=== PATIENT | female | born 1985 | race Caucasian/White ===

== ENCOUNTER → 2016-06-23 | Outpatient (CLI) | payer BC ==
[~2016-06-23] MED LIST: OXYC5TAB PO; PRENTAB26 PO
== END | disposition home or self-care (01) ==
LOC: C.PAPS 08:18
PROVIDERS: ATTEND Physician Assistant
DX: Z01.419 Encounter for gynecological examination (general) (routine) without abnormal findings (principal)

== ENCOUNTER → 2017-03-11 | Outpatient (CLI) | payer BC ==
--- NOTE | 2017-03-11 14:26 | MAMMOGRAPHY REPORT ---
ULTRASOUND OF RIGHT BREAST: 03/11/2017 CLINICAL HISTORY: The patient reported palpable lump in her right breast for approximately one month. She denies any associated pain or other complaints. COMPARISON: No prior exams were available for comparison. TECHNIQUE: Real-time targeted ultrasound of the right breast was performed. FINDINGS: Real-time, high-resolution targeted ultrasound was performed of the area of the palpable l ump pointed out by the patient, in the right breast at approximately 5 to 5:30, 8 cm from the nipple along the inframammary ridge. Sonographically normal tissue is seen in this region, without evidence of a mass or other suspicious sonographic abnormality. During the exam, the patient reports that he r provider also felt another possible lump in the lower outer quadrant during her breast exam, howeve r, the patient could not pinpoint the exact location of the lump. Ultrasound of the right lower oute r quadrant demonstrates no suspicious masses or other suspicious sonographic abnormalities. IMPRESSION: ACR BI-RADS CATEGORY 1: NEGATIVE No suspicious sonographic abnormality at the site of the palpable right breast lumps. There is no so nographic evidence of malignancy. Recommend clinical follow-up; any decision to biopsy should be bas ed on clinical grounds. The patient was verbally notified of the results. Malika Robert M.D. /:03/11/2017 09:04:38 Ensemble Member: Malika Robert MD, [facility] letter sent: Normal 1/2 BI-RADS Code: ACR BI-RADS Category 1: Negative
== END | disposition home or self-care (01) ==
LOC: C.MAMM 08:47
PROVIDERS: ATTEND Physician Assistant
DX: R92.8 Other abnormal and inconclusive findings on diagnostic imaging of breast (principal); N63.10 Unspecified lump in the right breast, unspecified quadrant

== ENCOUNTER → 2017-06-21 | Outpatient (CLI) | payer BC ==
[2017-06-21 17:34] LABS: HEMATOCRIT 38.8 % (37-47); HEMOGLOBIN 13.1 g/dL (12.0-16.0); MEAN CELL VOLUME 88.6 fL (80-100); MEAN CORPUSCULAR HEMOGLOBIN 29.9 pg (25-34); MEAN CORPUSCULAR HGB CONC 33.8 g/dl (32-36); MEAN PLATELET VOLUME 9.3 fL (7.4-10.4); PLATELET COUNT 278 K/uL (130-400); RED CELL DISTRIBUTION WIDTH CV 13.2 % (11.5-14.5); RED CELL DISTRIBUTION WIDTH SD 42.6 fL (36.4-46.3); WHITE BLOOD COUNT 8.99 K/uL (4.8-10.8)
== END | disposition home or self-care (01) ==
LOC: C.LAB1850 16:13
PROVIDERS: ATTEND Physician Assistant
DX: L29.8 Other pruritus (principal); N93.9 Abnormal uterine and vaginal bleeding, unspecified